=== PATIENT | male | born 1970 | race Caucasian/White ===

== ENCOUNTER 2020-08-01 02:42 | Inpatient (IN) ==
[2020-08-01] MEDS ORDERED: LACTATED RINGERS 1,000 ML IV STA (03:05)
[2020-08-01] MEDS ORDERED: MORPHINE 4 MG/1 ML VIAL IV STA ×2 (03:05→05:09)
[2020-08-01 03:28] LABS: Basophils % 0.2 % (0.0-0.8); Eosinophils % 0.1 % (0.00-10.9); Hematocrit 37.4 VOL% (42.0-52.0); Hemoglobin 12.4 GM/DL (14.0-18.0); Immature Granulocytes % 0.5 %; Immature Granulocytes Absolute 0.08 #; Lymphocytes # 1.1 10*3/uL (1.4-4.0); Lymphocytes % 6.4 % (21.2-54.2); Mean Corpuscular HGB Conc 33.2 GM/DL (32-36); Mean Corpuscular Volume 92.3 FL (87-102); Mean Platelet Volume 9.8 FL (9.6-12.0); Monocytes % 4.6 % (1.7-12.7); Neutrophils % 88.2 % (38.7-73.9); Platelet Count 216 T/CUMM (130-400); Red Blood Count 4.05 MC/CUMM (3.8-5.5); White Blood Count 16.4 T/CUMM (4-12)
[2020-08-01] MEDS ORDERED: ONDANSETRON 4 MG/2 ML VIAL ONE (03:37)
[2020-08-01 03:47] LABS: Alanine Aminotransferase 50 U/L (16-61); Albumin 3.5 G/DL (3.4-5.0); Alkaline Phosphatase 92 U/L (45-117); Aspartate Amino Transferase 41 U/L (0-37); Bilirubin,Total < 0.39 MG/DL (0.2-1.0); Blood Urea Nitrogen 14 MG/DL (7-18); Calcium 8.9 MG/DL (8.5-10.1); Carbon Dioxide 30 MMOL/L (21-32); Estimated Glom Filtration Rate 117 ML/MIN; Glucose 106 MG/DL (74-106); Osmolality,Calculated 275.7 MOS/KG (273-304); Sodium 138 MMOL/L (136-145); Total Protein 6.7 G/DL (6.4-8.2)
[2020-08-01 03:48] LABS: PT Patient Result 11.3 SECS (10.5-12.0); Partial Thromboplastin Time 26.5 SECS (23.9-33.8)
[2020-08-01] MEDS ORDERED: ONDANSETRON 4 MG/2 ML VIAL IV STA (03:49)
[2020-08-01] MEDS ORDERED: fentaNYL 100 MCG/2 ML VIAL ONE (04:07)
[2020-08-01] MEDS ORDERED: LIDOCAINE 1%/EPI INJ 20 ML VIAL ONE (04:08)
[2020-08-01] MEDS ORDERED: MIDAZOLAM 2 MG/2 ML VIAL ONE (04:08)
[2020-08-01] MEDS ORDERED: fentaNYL 100 MCG/2 ML VIAL IV STA (04:33)
[2020-08-01] MEDS ORDERED: MIDAZOLAM 2 MG/2 ML VIAL IV STA (04:33)
[2020-08-01] MEDS ORDERED: ONDANSETRON 4 MG/2 ML VIAL IV PRN (04:38)
[2020-08-01] MEDS ORDERED: LACTATED RINGERS 1,000 ML IV SCH (05:30)
[2020-08-01] MEDS: PANTOPRAZOLE 40 MG TABLET PO SCH (09:09)
[2020-08-01] MEDS: MORPHINE 4 MG/1 ML VIAL IV SCH ×4 (09:10→22:01)
[2020-08-01] MEDS: NICOTINE 21 MG/24 HR PATCH TRANSDERM SCH (12:12)
[2020-08-02] MEDS: MORPHINE 4 MG/1 ML VIAL IV SCH ×6 (01:30→12:22)
[2020-08-02 05:32] LABS: Basophils % 0.2 % (0.0-0.8); Eosinophils # 0.1 10*3/uL (0.0-0.87); Eosinophils % 0.9 % (0.00-10.9); Hematocrit 39.1 VOL% (42.0-52.0); Hemoglobin 13.3 GM/DL (14.0-18.0); Immature Granulocytes % 0.2 %; Immature Granulocytes Absolute 0.03 #; Lymphocytes # 1.2 10*3/uL (1.4-4.0); Lymphocytes % 9.5 % (21.2-54.2); Mean Corpuscular Volume 91.4 FL (87-102); Mean Platelet Volume 9.7 FL (9.6-12.0); Monocytes % 4.7 % (1.7-12.7); Neutrophils % 84.5 % (38.7-73.9); Platelet Count 189 T/CUMM (130-400); Red Blood Count 4.28 MC/CUMM (3.8-5.5); Red Cell Distribution Width 13.1 % (9.3-17.3); White Blood Count 12.3 T/CUMM (4-12)
[2020-08-02 05:56] LABS: Albumin 3.3 G/DL (3.4-5.0); Bilirubin,Total 0.9 MG/DL (0.2-1.0); Calcium 8.6 MG/DL (8.5-10.1); Osmolality,Calculated 265.4 MOS/KG (273-304); Potassium 3.9 MMOL/L (3.5-5.1); Total Protein 6.7 G/DL (6.4-8.2)
[2020-08-02] MEDS: PANTOPRAZOLE 40 MG TABLET PO SCH (08:13)
[2020-08-02] MEDS: NICOTINE 21 MG/24 HR PATCH TRANSDERM SCH (08:14)
[2020-08-02] MEDS: KETOROLAC 30 MG/1 ML VIAL IV SCH ×2 (15:26→21:19)
[2020-08-03] MEDS: KETOROLAC 30 MG/1 ML VIAL IV SCH ×4 (02:46→21:05)
[2020-08-03] MEDS: PANTOPRAZOLE 40 MG TABLET PO SCH (08:12)
[2020-08-03] MEDS: NICOTINE 21 MG/24 HR PATCH TRANSDERM SCH (08:13)
[2020-08-03] MEDS: HYDROmorphone 2 MG/1 ML VIAL IV PRN ×4 (11:41→22:48)
[2020-08-04] MEDS: KETOROLAC 30 MG/1 ML VIAL IV SCH ×2 (02:36→08:02)
[2020-08-04] MEDS: HYDROmorphone 2 MG/1 ML VIAL IV PRN (04:19)
[2020-08-04] MEDS: NICOTINE 21 MG/24 HR PATCH TRANSDERM SCH (08:02)
[2020-08-04] MEDS: PANTOPRAZOLE 40 MG TABLET PO SCH (08:02)
[2020-08-04 12:04] VITALS: BP 156/73
== END 2020-08-04 15:30 | DRG 200 ==
LOC: N.ED 02:42 → N.EDINP 04:38 → N.3W 05:26
PROVIDERS: ADMIT Surgery; ATTEND Surgery